=== PATIENT | female | born 1960 | race Caucasian/White ===

== ENCOUNTER → 2018-09-18 | Day surgery (SDC) | payer OTHER ==
[~2018-09-18] MED LIST: PERCOCET PO
--- NOTE | 2018-09-24 08:43 | OP ---
[address] [address] OPERATIVE REPORT Name: DEO WESTBROOK Room: [facility]#: [id number] Admission: 09/18/18 Attend Phys: Phillip Ba II Discharge: Date of : 60 Report #: [id number] THIS REPORT FOR: //name// CC: Priyanka Ba DATE OF SERVICE: 09/18/2018 PREOPERATIVE DIAGNOSIS: Left shoulder rotator cuff tear. POSTOPERATIVE DIAGNOSES: 1. Left shoulder rotator cuff tear. 2. Lateral clavicle osteoarthritis. 3. Bony cartilage debris with labral tears, glenohumeral joint. 4. Subacromial impingement. PROCEDURES PERFORMED: 1. Left shoulder arthroscopic surgery with rotator cuff repair. 2. Lateral clavicle excision. 3. Extensive debridement of glenohumeral joint and labral tears. 4. Subacromial decompression. SURGEON: Phillip Ba II, DO. VALUER: KWAKU Saucedo. ANESTHESIA: Per operative record. ESTIMATED BLOOD LOSS: Minimal. ANTIBIOTICS: Per operative record. DRAINS: None. COMPLICATIONS: None. CONDITION OF THE PATIENT: Stable to recovery room. DESCRIPTION OF PROCEDURE: The patient was taken to the operative suite, placed supine on the operating table and given appropriate anesthesia. The patient's affected shoulder was sterilely prepped and draped in a modified beachchair position and all bony prominences were well padded. Surgery began by a posterior portal incision. The arthroscope was advanced in the joint. There was only minor fraying to the biceps tendon without tear. The labrum, however, did have significant tearing to the inferior as well as superior portions and anterior and posterior portions, which was all shown [place] [id number] OPERATIVE REPORT Name: PIETRODEO Sage Room: [facility]#: [id number] Admission: 09/18/18 Attend Phys: Phillip Ba II Discharge: Date of : 60 Report #: [id number] within the glenohumeral joint. Establishing an anterior portal and cannula, extensive debridement was performed of the glenohumeral joint and labral tears noted to the superior, inferior as well as anterior and posterior portions of the glenohumeral joint, with an extensive debridement performed. The arthroscope was advanced to the subacromial space. A subacromial decompression with partial anterior acromioplasty was performed due to significant impingement within the subacromial space. There was also some significant osteoarthritis at the AC joint. Utilizing a shaver and arthroscopic bur, a distal centimeter of lateral clavicle was excised to the distal center of the clavicle. Attention was then turned to the rotator cuff tear. There was noted to be significant bursal-sided fraying, greater than 50% at the rotator cuff. A probe was utilized, which did push through the rotator cuff in 2 small areas, noted to be approximately 1.5 cm. After debridement of this rotator cuff in this region, a medium arthroscopic bioinductive implant was utilized with GINA tendon anchor secured medially and PEEK bone anchor secured laterally. The bioinductive implant will fully incorporate at 6 months and the GINA tendon anchors will absorb in one year. This was shown to repair of the rotator cuff, with full range of motion of the shoulder without evidence of re-tear. Final images were taken. The shoulder was then drained of arthroscopic fluid, closed with 4-0 nylon in simple fashion. Dermabond, sterile dressing and sling were applied. The patient transported to the recovery room in stable condition. Counts were correct throughout the procedure. <ELECTRONICALLY SIGNED> By: Phillip Ba II, DO 09/24/18 [id number] Ba II, DO /nt
== END | disposition home or self-care (01) ==
LOC: M.SUR 10:46
DX: M19.012 Primary osteoarthritis, left shoulder (principal); M75.102 Unspecified rotator cuff tear or rupture of left shoulder, not specified as traumatic; M24.112 Other articular cartilage disorders, left shoulder; M75.42 Impingement syndrome of left shoulder; S43.492A Other sprain of left shoulder joint, initial encounter; Z88.8 Allergy status to other drugs, medicaments and biological substances; X58.XXXA Exposure to other specified factors, initial encounter; Y93.89 Activity, other specified; Y92.89 Other specified places as the place of occurrence of the external cause; Y99.8 Other external cause status